=== PATIENT | male | born 1960 ===

== ENCOUNTER → 2023-12-05 12:04 | Outpatient (BNVA) | payer MEDICARE, SELFPAY | PROVIDERS: PCP Nurse Practitioner Family; Visit Provider Internal Medicine | DX: I48.91 Unspecified atrial fibrillation (principal); E78.5 Hyperlipidemia, unspecified; I10 Essential (primary) hypertension; R73.03 Prediabetes; Z79.01 Long term (current) use of anticoagulants | CPT/HCPCS: 99214 ==

== ENCOUNTER → 2024-09-12 10:51 | Outpatient (BNVA) | payer MEDICARE, SELFPAY | PROVIDERS: PCP Nurse Practitioner Family; Visit Provider Nurse Practitioner Family | DX: I10 Essential (primary) hypertension (principal); I48.11 Longstanding persistent atrial fibrillation; Z79.01 Long term (current) use of anticoagulants; E78.5 Hyperlipidemia, unspecified | CPT/HCPCS: 99214 ==

== ENCOUNTER → 2024-11-21 08:17 | Outpatient (BNVA) | payer MEDICARE, SELFPAY | PROVIDERS: PCP Nurse Practitioner Family; Visit Provider Physician Assistant | DX: M25.562 Pain in left knee (principal); M17.12 Unilateral primary osteoarthritis, left knee; R03.0 Elevated blood-pressure reading, without diagnosis of hypertension | CPT/HCPCS: 20610; 73560; 73565; 99203; J3301 ==

== ENCOUNTER → 2025-05-25 14:39 | Outpatient (BNVA) | payer MEDICARE, SELFPAY | PROVIDERS: PCP Nurse Practitioner Family; Visit Provider Internal Medicine | DX: I48.11 Longstanding persistent atrial fibrillation (principal); Z79.01 Long term (current) use of anticoagulants; E78.5 Hyperlipidemia, unspecified; R73.03 Prediabetes; I10 Essential (primary) hypertension | CPT/HCPCS: 99214 ==

== ENCOUNTER 2025-06-12 07:36 | Emergency (ER) | payer MEDICARE, SELFPAY ==
--- NOTE | 2025-06-12 07:42 | XR_ITS ---
WS: [id number] Chest with left rib detail, 06/12/2025 Clinical Data: pain Comparison: None. Findings: The lungs show no nodules, masses, or effusions. The heart is normal. No pneumonia or pneumothorax is seen. The aortic arch shows tortuosity. The ribs are intact. No rib fractures seen. No subcutaneous emphysema is present. XR/XR ribs LT mn 3V w [id number] Impression: 1. Atherosclerosis. 2. Negative left rib detail.
--- OUTSIDE RECORDS SUMMARY | 2025-06-12 07:44 | XMS_ITS | Clinical Summary ---
Author Organization [facility] Address [address] [place] [address] Phone Care Team Providers Care Director Pharmacy Services Name Role Phone Non-Staff, Physician Primary Care Provider Unava ilable Allergies No known active allergies Medications lisinopril (PRINIVIL) 20 mg tablet Take 20 mg by mouth daily. Active hydrochlorothiaz ashley 25 mg Oral tablet Take 25 mg by mouth daily. 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 Gender Identity Not on file Sexual Orientation Not on file Last Filed Vital Signs Vital Sign Reading Time Taken Comments Blood Pressure 150/92 11/25/2013 11:48 AM [employer] WHEEL REPAIRER Pulse 72 11/25/2013 11:48 AM [employer]ING [employer]ING WHEEL REPAIRER Temperature 36.3 C (97.4 F) 11/25/2013 9:58 AM [employer]ING [employer]ING WHEEL REPAIRER Respiratory Rate 20 11/25/2013 11:4 8 AM BU[employer]ING [employer]ING WHEEL REPAIRER Oxygen Saturation 97% 11/25/2013 11: 48 AM [employer]ING WHEEL REPAIRER Inhaled Oxygen Concentration - - Weight 162.6 kg (358 lb 6.4 oz) 11/25/2013 9:58 AM BU[employer]ING AND POL[employer]ING WHEEL REPAIRER Height 182.9 cm (6') 11/25/2013 9:58 AM [employer]ING [employer]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 REPAIRER Body Mass Index 48.61 11/25/2013 9:58 AM [employer]ING [employer]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
--- OUTSIDE RECORDS SUMMARY | 2025-06-12 07:44 | XMS_ITS | Clinical Summary ---
Author Organization [facility] Address [address] 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
[2025-06-12 07:50] VITALS: BP 133/99; PULSE 83; RESP 18; TEMP 36.8; O2SAT 97; BMI 50.1
--- NOTE | 2025-06-12 07:55 | ECG_ITS ---
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
--- NOTE | 2025-06-12 07:55 | W.ED.GENADLT ---
HPI - General Adult General: Chief complaint: General Medical Stated complaint: left side rib pain Time Seen by Provider: 06/12/25 07:42 History of Present Illness: 64-year-old male presents emergency room complaining of left rib pain. 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 No direct trauma or blunt injury no shortness of breath no pain that radiates into the neck or back or arm. No shortness of breath no productive cough no hemoptysis. Pain is reproducible with movement and palpation on the left side particularly at the lower ribs Associated symptoms: Reports chest pain; Deny dyspnea or rash Related Data Home Medications ?Medication ?Instructions ?Recorded ?Confirmed cholecalciferol (vitamin D3) 1,250 PO .WEEKLY 03/16/22 05/25/25 mcg (50,000 unit) capsule citalopram 20 mg tablet 20 mg PO DAILY 03/16/22 05/25/25 hydrochlorothiazide 25 mg tablet 25 mg PO DAILY 03/16/22 05/25/25 simvastatin 20 mg tablet 20 mg PO DAILY 03/28/22 05/25/25 benazepril 40 mg tablet 20 mg PO DAILY 09/12/24 05/25/25 Previous Rx's ?Medication ?Instructions ?Recorded apixaban 5 mg tablet (Eliquis) 5 mg PO BID #30 tabs 10/16/23 metoprolol tartrate 50 mg tablet See Rx Instructions .Route 04/06/25 .COMPLEX #180 tabs diclofenac sodium 75 mg 75 mg PO Q12H PRN pain #20 tabs 06/12/25 tablet,delayed release Allergies Allergy/AdvReac Type Severity Reaction Status Date / Time No Known Allergies Allergy Verified 06/12/25 07:56 Review of Systems Const: Denies: fever(s) or chills Card: Reports: chest pain Resp: Denies: dyspnea GI: Denies: abdominal pain : Denies: dysuria, urinary frequency or urinary urgency Musc: Denies: neck pain or back pain Skin/Breast: Denies: rash PFSH ED PFSH: Medical History Vitamin D deficiency Major depressive disorder Prediabetes Hyperlipemia Non-alcoholic fatty liver disease Morbid obesity Hypertensive disorder Family History Grandfather Cancer Alcohol abuse Father Diabetes Heart disease Social History Smoking and tobacco/nicotine status: never used tobacco/nicotine Marital status: Physical Exam Const: GENERAL APPEARANCE: cooperative ORIENTATION/CONSCIOUSNESS: Yes awake, Yes oriented to person, Yes oriented to place and Yes oriented to time HENMT: COMMON NORMALS: normocephalic, atraumatic and hearing grossly normal bilaterally HEAD & SCALP: normocephalic and atraumatic Resp: COMMON NORMALS: normal respiratory effort, No retractions, No use of accessory muscles and clear to auscultation bilaterally AUSCULTATION: clear to auscultation bilaterally Cardio: COMMON NORMALS: regular rate, regular rhythm and No murmurs present (Cardio) RATE: regular rate RHYTHM: regular rhythm GI: COMMON NORMALS: Soft to palpation and No hepatosplenomegaly present AUSCULTATION: Yes normoactive bowel sounds PALPATION: Yes Soft to palpation, No Tenderness to palpation present (GI), No Guarding due to palpation present (GI) and Yes No hepatosplenomegaly present Extremity: COMMON NORMALS: normal to inspection, capillary refill normal, no clubbing, cyanosis or edema, no calf tenderness and no pedal edema Neuro: SENSORIUM/ORIENTATION: Yes oriented to person, Yes oriented to place and Yes oriented to time Skin: COMMON NORMALS: no rashes or lesions noted GENERAL SKIN EXAM: no rashes or lesions noted Course Vital Signs: Vital signs: Vital Signs Temperature 98.3 F 06/12/25 07:50 Pulse Rate 83 06/12/25 07:50 Respiratory Rate 18 06/12/25 07:50 Blood Pressure 133/99 06/12/25 07:50 Pulse Oximetry 97 06/12/25 07:50 Oxygen Delivery Me thod Room Air 06/12/25 07:50 MDM - General Adult Medical Decision Making X-ray of the ribs shows no acute fracture. Symptoms worse with palpation and deep inspiration. Examination of the skin there is no sign of rash believe it is zoster. Will discharge home with pain medication to use as needed apply ice or heat as needed. Follow-up as needed Medical Records I reviewed the patient's medical records. Lab Data Radiology Impressions Ribs X-Ray 06/12/25 07:42 Impression: 1. Atherosclerosis. 2. Negative left rib detail. All radiology interpretation(s) finalized by discharge Discharge Plan Discharge Patient Disposition: Home Clinical Impression: Rib pain on left side Condition: Stable Prescriptions: New diclofenac sodium 75 mg tablet,delayed release (DR/EC) 75 mg PO Q12H PRN (Reason: pain) Qty: 20 0RF No Action cholecalciferol (vitamin D3) 1,250 mcg (50,000 unit) capsule PO .WEEKLY citalopram 20 mg tablet 20 mg PO DAILY hydrochlorothiazide 25 mg tablet 25 mg PO DAILY benazepril 40 mg tablet 20 mg PO DAILY simvastatin 20 mg tablet 20 mg PO DAILY Eliquis 5 mg tablet 5 mg PO BID Qty: 30 0RF metoprolol tartrate 50 mg tablet See Rx Instructions .ROUTE .COMPLEX Qty: 180 3RF Dose Instruction: Take 1 tablet by mouth twice daily Rx Instructions: Take 1 tablet by mouth twice daily Discharge Orders: Discharge ED (Routine); Ordered 06/12/25 Ordered By: Greg Wan Referrals: Becca Marcos NP [Primary Care Provider, Nurse Practitioner] Discharge Diet: Usual diet Discharge Activity: Increase activity as tolerated Patient Instructions: Opioid Safety, Pain Management, Patient Portal & Prabhjot Instructions Activity Restrictions/Additional Instructions: Thank you for choosing [facility] for your healthcare needs today. It is very important that you follow up as instructed or that you return to the Emergency Department should you have concerns or if your condition changes or worsens in any way. You are seen emergency room with complaint of left lower rib pain. Your EKG did not show any acute changes you do have atrial fibrillation which has been chronic. Pain is reproducible with palpation movement and deep inspiration is typical of musculoskeletal pain you are given diclofenac to use as needed follow-up with your primary care doctor as needed this likely will last at least 1 to 2 weeks. Print Language: Filipino Coding Level of Care Code ED Computer Operations Technician for Geno Mcclain
== END 2025-06-12 08:18 | disposition home or self-care (01) ==
PROVIDERS: Emergency Provider Family Medicine; PCP Nurse Practitioner Family
DX: R07.81 Pleurodynia (principal); Z79.01 Long term (current) use of anticoagulants; E78.5 Hyperlipidemia, unspecified; I10 Essential (primary) hypertension
CPT/HCPCS: 71101; 93005; 99284

== ENCOUNTER → 2025-10-21 13:02 | Outpatient (BNVA) | payer MEDICARE, SELFPAY | PROVIDERS: PCP Nurse Practitioner Family; Visit Provider Physician Assistant | DX: M17.12 Unilateral primary osteoarthritis, left knee (principal) | CPT/HCPCS: 20610; 73560; 73565; 99213; J3301; J9999 ==